=== PATIENT | male | born 1985 | race Caucasian/White ===

== ENCOUNTER 2022-04-15 17:46 | Emergency (ER) | payer MEDICAID, OTHER ==
[~2022-04-15] VITALS: Ht 180.3 cm; Wt 95.0 kg
[2022-04-15 17:50] VITALS: BP 144/84
== END 2022-04-15 18:39 | disposition left against medical advice (07) ==
LOC: ER 17:46
DX: R45.6 Violent behavior (principal); F12.10 Cannabis abuse, uncomplicated; Z88.0 Allergy status to penicillin
CPT/HCPCS: 99283